=== PATIENT | male | born 1955 | race Caucasian/White ===

== ENCOUNTER 2022-03-20 17:39 | Emergency (ER) | payer OTHER, MEDICAID ==
[~2022-03-20] VITALS: Ht 182.9 cm; Wt 90.7 kg
[2022-03-20 17:46] VITALS: BP_SYST 86
--- NOTE | 2022-03-20 17:49 | NUR ---
DR. GOMES AT BEDSIDE TO ASSESS PT.
--- NOTE | 2022-03-20 17:50 | NUR ---
RECEIVED PT FROM YUDITH DASH. PT ARY RAMIREZ FROM [facility] FOR C/O DIZZINESS.X DIZZINESS PT IS AAOX2-3, ON R/A. NO COUGH OR SOB. NORMAL S1S2 NOTED. DENIES N/V/D/C. DISTAL PULSES NORMAL. SKIN CDI, NO EDEMA. SIDERAILS UP X2.
[2022-03-20] MEDS ORDERED: NACL 0.9% 1,000 ML IV ONE (18:00)
--- NOTE | 2022-03-20 18:10 | NUR ---
1000ML NS IV BOLUS INITIATED.
[2022-03-20 18:21] LABS: BASOPHILS % (AUTO) 0.3 % (0.0-2.0); EOSINOPHILS % (AUTO) 0.2 % (0.0-4.0); HEMATOCRIT 40.9 % (36-54); HEMOGLOBIN 14.6 g/dL (14.0-18.0); LYMPHOCYTES # (AUTO) 0.3 K/uL (1.0-5.5); MEAN CORPUSCULAR HEMOGLOBIN 31 pg (27-31); MEAN CORPUSCULAR HGB CONC 36 % (32-36); MEAN CORPUSCULAR VOLUME 88 fL (79.0-98.0); MONOCYTES # (AUTO) 0.5 K/uL (0.0-1.0); MONOCYTES % (AUTO) 8.8 % (1.7-9.3); NEUTROPHILS # (AUTO) 4.7 K/uL (1.8-7.7); NEUTROPHILS % (AUTO) 84.7 % (40.0-70.0); PLATELET COUNT (AUTO) 138 K/uL (130-430); RED BLOOD CELL COUNT(AUTO) 4.64 MIL/uL (4.2-6.2); RED CELL DISTRIBUTION WIDTH 12.8 % (9.0-15.0); WHITE BLOOD COUNT (AUTO) 5.6 K/uL (4.8-10.8)
[2022-03-20 18:28] LABS: CALCIUM 8.2 mg/dL (8.4-11.0); CREATININE 1.11 mg/dL (0.55-1.30)
--- NOTE | 2022-03-20 18:36 | NUR ---
PT GIVEN PUREED DINNER. 100% MEAL CONSUMED. Addendum: 03/20/22 at 1837 by [email or web address] CLARIFICATION: CHARTING DONE ON WRONG PT.
[2022-03-20 18:37] LABS: ALBUMIN 3.1 g/dL (3.4-4.8); TOTAL BILIRUBIN 0.9 mg/dL (0.0-1.0)
--- NOTE | 2022-03-20 19:07 | NUR ---
SPOKE TO SHAILA AT [facility] AT [phone] AND MADE HER AWARE PT IS DISCHARGED AND NEEDS A RIDE HOME. SHAILA STATED SHE WILL OFFICE ASSISTANT PT WITHIN THE HOUR.
--- NOTE | 2022-03-20 19:22 | NUR ---
ENDORSED PT TO YUDITH QUEZADA. ALL QUESTIONS AND CONCERNS ADDRESSED.
[2022-03-20 20:01] VITALS: BP_SYST 132
--- NOTE | 2022-03-20 20:07 | NUR ---
Patient given written and verbal discharge instructions and verbalizes understanding. ER MD discussed with patient the results and treatment provided. Patient in stable condition. ID arm band removed. IV catheter removed intact and dressing applied, no active bleeding. Stressed the importance of hydration and drinking water to patient and caregiver. Patient educated on pain management and to follow up with PMD. Opportunity for questions provided and answered.
== END 2022-03-20 20:01 | disposition home or self-care (01) ==
LOC: SED 17:39
DX: R42 Dizziness and giddiness (principal); E87.1 Hypo-osmolality and hyponatremia; R55 Syncope and collapse; Z79.899 Other long term (current) drug therapy
CPT/HCPCS: 99284; 96360; 80053; 85025; 36415; 93005; J7030